=== PATIENT | female | born 1980 | race Caucasian/White ===

== ENCOUNTER 2025-05-13 15:54 | Emergency (ER) | payer OTHER ==
[~2025-05-13] VITALS: Wt 96.6 kg
[2025-05-13] MEDS ORDERED: CLARITIN REDITAB5 MG PO (16:04)
[2025-05-13] MEDS ORDERED: XANAX0.5 MG PO (16:04)
[2025-05-13] MEDS ORDERED: Bacitracin Zinc 14 GM TUBE T ONE (16:40)
[2025-05-13] MEDS ORDERED: CLINDAMYCIN HC300 MG PO ×2 (17:15→17:30)
== END 2025-05-13 17:21 | disposition home or self-care (01) ==
LOC: ED 15:54
DX: S91.205A Unspecified open wound of left lesser toe(s) with damage to nail, initial encounter (principal); Z88.0 Allergy status to penicillin; Z88.2 Allergy status to sulfonamides; Z88.1 Allergy status to other antibiotic agents; W22.8XXA Striking against or struck by other objects, initial encounter; Y93.89 Activity, other specified; Y92.89 Other specified places as the place of occurrence of the external cause; Y99.8 Other external cause status